=== PATIENT | female | born 1995 | race Caucasian/White ===

== ENCOUNTER 2020-08-31 17:41 | Emergency (ER) | payer OTHER ==
[~2020-08-31] VITALS: Ht 160 cm; Wt 99.8 kg
[2020-08-31 17:51] VITALS: BP 130/83
--- NOTE | 2020-08-31 17:54 | NUR ---
Pt taken to lobby.
--- NOTE | 2020-08-31 17:56 | NUR ---
25 Y/O FEMALE C/O CONGESTION X1DAY WITH PRODUCTIVE COUGH WITH GREEN PHLEGM AND STATES INCONTINENT EPISODES X1WEEK. PT DENIES FEVER/CHILLS, DENIES N/V. PT STATES SHE HAS INCONTINENT EPISODES WHEN COUGHING MAINLY. DENIES PMH NKA
--- NOTE | 2020-08-31 19:14 | NUR ---
DR RODRIGUEZ EXAMINING PT IN TRIAGE
[2020-08-31 19:38] VITALS: BP 130/83
--- NOTE | 2020-08-31 19:38 | NUR ---
Patient discharged with v/s stable. Written and verbal after care instructions given and explained. Patient verbalized understanding. Ambulatory with steady gait. All questions addressed prior to discharge. Advised to follow up with PMD.
== END 2020-08-31 19:38 | disposition home or self-care (01) ==
LOC: MED 17:41
DX: J06.9 Acute upper respiratory infection, unspecified (principal); R39.81 Functional urinary incontinence
CPT/HCPCS: 99281

== ENCOUNTER 2023-04-23 06:40 | Emergency (ER) | payer OTHER ==
[~2023-04-23] VITALS: Ht 160 cm; Wt 110.2 kg
[2023-04-23 06:45] VITALS: BP 136/85; PULSE 88; RESP 20; TEMP 97.4; O2SAT 96
[2023-04-23] MEDS ORDERED: MECLIZINE 25 MG TAB PO ONE (07:10)
[2023-04-23] MEDS ORDERED: KETOROLAC 30 MG/ML VIAL IVP ONE (07:20)
[2023-04-23] MEDS ORDERED: PROCHLORPERAZINE 10 MG/2 ML VIAL IVP ONE (07:20)
[2023-04-23] MEDS ORDERED: diphenhydrAMINE 50 MG/ML VIAL IVP ONE (07:20)
[2023-04-23 09:54] VITALS: BP 122/80; PULSE 70; RESP 15; TEMP 97.8; O2SAT 99
== END 2023-04-23 09:55 | disposition home or self-care (01) ==
LOC: MED 06:40
DX: G43.909 Migraine, unspecified, not intractable, without status migrainosus (principal); R42 Dizziness and giddiness
CPT/HCPCS: 70450; 96374; 96375; 99285; J0780; J1200; J1885; J8597